=== PATIENT | male | born 2000 | race Caucasian/White ===

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

== ENCOUNTER 2019-01-05 20:57 | Emergency (ER) | payer OTHER ==
[2019-01-05 21:08] VITALS: BP 133/79; PULSE 66; TEMP 98.8; O2SAT 98
--- NOTE | 2019-01-05 22:17 | C.PDOC ---
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 He states the pain bothered him a couple of weeks but then went away, today he began training again and while he was picking up speed bega feeling pain to that area again. Patient notes the school is closed so he came here instead, usually goes to see the school nurse. He has not seen a specialist for it yet. Denies weakness or numbness. Time Seen by Provider: 01/05/19 21:54 Chief Complaint (Nursing): Groin Pain History Per: Patient History/Exam Limitations: no limitations Onset/Duration Of Symptoms: Hrs Current Symptoms Are (Timing): Still Present Recent travel outside of the [place]: No Past Medical History Reviewed: Historical Data, Nursing Documentation, Vital Signs Vital Signs: Last Vital Signs Temp 98.8 F 01/05/19 21:05 Pulse 66 01/05/19 21:05 Resp 18 01/05/19 21:05 BP 133/79 01/05/19 21:05 Pulse Ox 98 01/05/19 21:05 Primary Care Provider: Sandip Panchal - Medical History PMH: Asthma Family History: States: Unknown Family Hx - Social History Hx Tobacco Use: No Hx Alcohol Use: No Hx Substance Use: No - Immunization History Hx Tetanus Toxoid Vaccination: No Hx Influenza Vaccination: Yes Hx Pneumococcal Vaccination: No Review Of Systems Musculoskeletal: Positive for: Other (Right groin pain). Negative for: Back Pain Neurological: Negative for: Weakness, Numbness Physical Exam - Physical Exam Appears: Well, Non-toxic, No Acute Distress Skin: Normal Color, Warm Head: Atraumatic, Normacephalic Eye(s): bilateral: Normal Inspection Extremity: Capillary Refill (<2 seconds), Other (Tenderness with palpation of right groin. Full ROM of right hip joint. Rest of right lower extremity normal.) Pulses: Left Radial: Normal, Right Radial: Normal, Left Dorsalis Pedis: Normal, Right Dorsalis Pedis: Normal Neurological/Psych: Oriented x3, Normal Speech, Normal Motor, Normal Sensation Gait: Steady ED Course And Treatment O2 Sat by Pulse Oximetry: 98 (Room air) Pulse Ox Interpretation: Normal Disposition Counseled Patient/Family Regarding: Diagnosis, Need For Followup, Rx Given - Disposition Referrals: Conner Alford MD [Staff Provider] - Zack Hawk MD [Staff Provider] - Disposition: HOME/ ROUTINE Disposition Time: 22:14 Condition: STABLE Prescriptions: Ibuprofen [Motrin Tab] 800 mg PO TID PRN #21 tab PRN Reason: Pain, Moderate (4-7) Instructions: Groin Strain (DC) Forms: General Discharge Instructions, [facility] ([place]an), Gym Excuse - Clinical Impression Clinical Impression: Strain of muscle of right groin region - 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 - Scribe Statement The provider has reviewed the documentation as recorded by the Scribsylvia Park All medical record entries made by the Marielibsylvia were at my direction and personally dictated by me. I have reviewed the chart and agree that the record accurately reflects my personal performance of the history, physical exam, medical decision making, and the department course for this patient. I have also personally directed, reviewed, and agree with the discharge instructions and disposition.
[2019-01-05 22:40] VITALS: RESP 20
== END 2019-01-05 22:40 | disposition home or self-care (01) ==
LOC: C.ER 20:57
DX: S39.011A Strain of muscle, fascia and tendon of abdomen, initial encounter (principal); X50.9XXA Other and unspecified overexertion or strenuous movements or postures, initial encounter